=== PATIENT | male | born 1985 | race American Indian/Alaskan Native ===

== ENCOUNTER 2017-01-25 00:12 | Emergency (ER) | payer OTHER ==
[2017-01-25] MEDS ORDERED: ARTIFICIAL TEARS OPHTH OINT OU PRN (00:24)
[2017-01-25] MEDS ORDERED: VASELINE LIP THERAPY TP PRN (00:24)
[2017-01-25 00:25] LABS: Basophils % (Auto) 0.6 % (0.0-1.8); Eosinophils % (Auto) 0.9 % (0.0-4.3); Hematocrit 35.1 % (35.5-45.6); Mean Corpuscular HGB Conc 34 % (32-34); Mean Corpuscular Hemoglobin 33 pg (28-32); Mean Corpuscular Volume 95 fl (84-94); Platelet Count 200 K/mm3 (140-440); Red Blood Count 3.68 M/mm3 (3.65-5.03); Red Cell Distribution Width 13.3 % (13.2-15.2); White Blood Count 8.6 K/mm3 (4.5-11.0)
[2017-01-25 00:30] LABS: INR 1.01 (0.87-1.13)
[2017-01-25] MEDS ORDERED: NACL 0.9% 1000 ML 2,000 ML IV ONE (00:30)
[2017-01-25] MEDS ORDERED: DIPRIVAN 10 MG/ML 1,000 MG/100 ML BOTTLE IV ONE (00:36)
[2017-01-25 00:37] LABS: Alanine Aminotransferase 17 units/L (7-56); Albumin 3.9 g/dL (3.9-5); Albumin/Globulin Ratio 1.4 %; Alkaline Phosphatase 65 units/L (35-129); Anion Gap 23 mmol/L; BUN/Creatinine Ratio 8.88; Blood Urea Nitrogen 8 mg/dL (9-20); Calcium 7.8 mg/dL (8.4-10.2); Carbon Dioxide 20 mmol/L (22-30); Chloride 98.1 mmol/L (98-107); Glucose 145 mg/dL (75-100); Potassium 3.3 mmol/L (3.6-5.0); Sodium 138 mmol/L (137-145); Total Protein 6.7 g/dL (6.3-8.2)
[2017-01-25] MEDS ORDERED: fentaNYL DRIP Premix 0 MCG/0 ML BAG IV ONE (00:37)
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
[2017-01-25] MEDS ORDERED: NACL 0.9% 1000 ML 0 ML ONE (00:52)
[2017-01-25] MEDS ORDERED: LACTATED RINGERS 3,000 ML ONE (00:53)
[2017-01-25] MEDS ORDERED: DIPRIVAN 10 MG/ML 1,000 MG/100 ML BOTTLE IV SCH (01:00)
[2017-01-25] MEDS ORDERED: NACL 0.9% 1000 ML 1,000 ML ONE (01:08)
[2017-01-25 01:48] VITALS: BP 106/60
[2017-01-25] MEDS ORDERED: NACL 0.9% 1000 ML 2,000 ML ONE (04:17)
[2017-01-25] MEDS ORDERED: NACL 0.9% 1000 ML 1,000 ML IV ONE (05:15)
[2017-01-25] MEDS ORDERED: LACTATED RINGERS 1,000 ML IV ONE ×3 (05:16)
[2017-01-25] MEDS ORDERED: HYDROGEN PEROXIDE ONE (06:38)
[2017-01-25] MEDS ORDERED: HYDROGEN PEROXIDE TP ONE (06:41)
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
--- NOTE | 2017-01-25 07:59 | XRay Report ---
AP CHEST: HISTORY: Endotracheal tube placement An endotracheal tube terminates 3.4 cm superior to the santi. A nasogastric tube terminates in the mid stomach. AP view of the chest demonstrates a normal mediastinal and cardiac contour with clear lungs and normal bony and soft tissue structures. IMPRESSION: Unremarkable AP chest. Adequate placement of lines and tubes.
[2017-01-25] MEDS ORDERED: VERSED IV ONE (11:40)
[2017-01-25] MEDS ORDERED: ZEMURON IV ONE (11:40)
[2017-01-25] MEDS ORDERED: AMIDATE IV ONE (11:40)
[2017-01-25] MEDS ORDERED: QUELICIN ONE (11:40)
== END 2017-01-25 01:55 | disposition other institution (70) ==
LOC: ED 00:12
DX: S11.81XA Laceration without foreign body of other specified part of neck, initial encounter (principal); S11.89XA Other open wound of other specified part of neck, initial encounter; F17.200 Nicotine dependence, unspecified, uncomplicated; X99.1XXA Assault by knife, initial encounter; Y93.89 Activity, other specified; Y99.8 Other external cause status; Y92.89 Other specified places as the place of occurrence of the external cause
CPT/HCPCS: 31500; 36415; 36430; 36556; 51702; 71010; 72020; 80053; 85025; 85610; 86850; 86900; 86901; 86920; 96360; 96361; 99291; J0330; J2250; J2704; J7030; J7120; P9016; P9017; 94002; J3010